=== PATIENT | male | born 1950 | race Caucasian/White ===

== ENCOUNTER → 2017-01-08 | Outpatient (CLI) | payer MEDICARE ==
[2017-01-08 15:09] LABS: Basophils % (A) 1 %; CHCM 33.2; Eosinophils # (A) 0.1 k/uL (0-0.7); Eosinophils % (A) 2 %; HCT 47.8 % (39.0-53.0); HDW 2.26; HGB 15.8 gm/dL (13.0-17.5); Luc # (Auto) 0.13; Luc % (Auto) 3; Lymphocytes # (A) 1.4 k/uL (1.0-4.8); Lymphocytes % (A) 32 %; MCHC 33.1 g/dL (31.0-37.0); MCV 96.7 fL (80.0-100.0); Mean Platelet Volume 8.2; Monocytes # (A) 0.3 k/uL (0-1.0); Monocytes % (A) 7 %; Neutrophils # (A) 2.4 k/uL (1.3-7.7); Neutrophils % (A) 55 %; RBC 4.94 m/uL (4.30-5.90); RDW 13.2 % (11.5-15.5); WBC 4.4 k/uL (3.8-10.6); WBC (Perox) 4.46
[2017-01-08 15:16] LABS: ALT 38 U/L (21-72); AST 33 U/L (17-59); Alkaline Phosphatase 44 U/L (38-126); Anion Gap 10 mmol/L; Blood Urea Nitrogen 14 mg/dL (9-20); Calcium 9.7 mg/dL (8.4-10.2); Carbon Dioxide 30 mmol/L (22-30); Chloride 102 mmol/L (98-107); Glucose 93 mg/dL (74-99); Non-African American GFR(MDRD) >60 (>60 ml/min/1.73 sqM); Sodium 142 mmol/L (137-145); Total Bilirubin 0.9 mg/dL (0.2-1.3); Total Protein 7.8 g/dL (6.3-8.2)
--- NOTE | 2017-01-08 15:36 | XR ---
EXAMINATION TYPE: XR chest 2V DATE OF EXAM: 01/08/2017 3:12 PM COMPARISON: 04/01/2012 TECHNIQUE: PA and lateral views submitted. HISTORY: Left-sided chest pain FINDINGS: The lungs are clear and there is no pneumothorax, pleural effusion, or focal pneumonia. Hyperinflation suggests COPD. Postoperative changes noted. IMPRESSION: 1. No acute process.
--- NOTE | 2017-01-08 15:36 | US ---
EXAMINATION TYPE: US abdomen complete DATE OF EXAM: 01/08/2017 2:38 PM COMPARISON: NONE CLINICAL HISTORY: R10.84 ABD PAIN. Left chest pain EXAM MEASUREMENTS: Liver Length: 12.2 cm Gallbladder Wall: 0.3 cm CBD: 0.1 cm Spleen: 7.1 cm Right Kidney: 11.0 x 5.0 x 4.9 cm Left Kidney: 12.0 x 5.6 x 5.0 cm cm Pancreas: overlying bowel gas limited visualization Liver: Echotexture somewhat heterogeneous within the liver. Gallbladder: wnl Evidence for sonographic Jackman's sign: No CBD: wnl Spleen: wnl Right Kidney: wnl Left Kidney: wnl Upper IVC: wnl overlying bowel gas limited visualization and Abd Aorta: wnloverlying bowel gas limited visualization Heterogeneously of liver echotexture could be due to underlying fatty infiltration with areas of foca l fatty sparing IMPRESSION: Findings in the liver as described, consider liver MRI for better evaluation. Exam is mejia ited.
== END ==
LOC: RADUSWWP 13:46
PROVIDERS: ATTEND Nurse Practitioner Family
DX: R10.84 Generalized abdominal pain (principal); R07.89 Other chest pain; R10.9 Unspecified abdominal pain; R53.83 Other fatigue; Z13.21 Encounter for screening for nutritional disorder
CPT/HCPCS: 71020; 76700; 80053; 82306; 85025

== ENCOUNTER → 2017-02-02 | Outpatient (CLI) | payer MEDICARE ==
--- NOTE | 2017-02-02 17:16 | MR ---
EXAMINATION TYPE: MR liver wo/w con DATE OF EXAM: 02/02/2017 1:51 PM COMPARISON: NONE HISTORY: Chest pain/LUQ pain, abn US CONTRAST: Standard multiplanar, multisequence MRI departmental protocol utilizing 16 mL intravenous MultiHance gadolinium contrast. FINDINGS: Liver has normal size and contour. I see no focal liver defect. Bile ducts are not dilated. Gallbladder appears normal. I see no gallbladder wall thickening. There is no sign of a pancreatic m ass. Spleen has normal size. There is a 1 cm area of fluid in the posterior aspect of the tail of the pancreas that could be a pseudocyst. Pancreatic duct appears normal. There is no sign of an adrenal mass. Kidneys have normal size and contour. There is no hydronephrosis. There is no sign of retroperi toneal adenopathy. There is no ascites. Bowel is unremarkable. There is no pathologic enhancement. Th ere is no evidence of a liver mass. There is normal renal contrast opacification. Ureters are not dil ated. I see no bony destructive process. IMPRESSION: Negative MR scan of the abdomen. Normal liver. Possible small pancreatic pseudocyst.
== END | disposition home or self-care (01) ==
LOC: RADMRIMAIN 12:47
PROVIDERS: ATTEND Nurse Practitioner Family
DX: R93.2 Abnormal findings on diagnostic imaging of liver and biliary tract (principal); R10.9 Unspecified abdominal pain
CPT/HCPCS: 74183; A9577

== ENCOUNTER → 2017-07-25 | Day surgery (SDC) | payer MEDICARE ==
[2017-07-24 11:28] VITALS: BMI 25.8
[~2017-07-25] MED LIST: LACTATED RINGERS 1,000 ML IV SCH; SODIUM CHLORIDE 0.9% 1,000 ML IV SCH
[2017-07-25 06:26] VITALS: BP 130/59; PULSE 42; RESP 18; TEMP 97.8
--- NOTE | 2017-07-25 07:58 | PN ---
PROGRESS NOTE Mr. Roberts is a 67-year-old male who was brought in to undergo NANETTE guided cardioversion. On presentation, he was noted to be in sinus bradycardia. He denies any chest pain. His breathing has been stable. In view of that, he will stop his beta rubens and he will be started on flecainide 50 mg twice a day. He will be discharged home today and followed in 2 weeks. The patient has an event monitor that was placed in [facility]. The recommendation and the plan was discussed with the patient and his family. TAWNYA / SALUDN: [id number] /
== END | disposition home or self-care (01) ==
LOC: CATHCVL 05:57
PROVIDERS: ATTEND Internal Medicine Interventional Cardiology
DX: R00.1 Bradycardia, unspecified (principal); Z53.8 Procedure and treatment not carried out for other reasons; I48.3 Typical atrial flutter; R07.9 Chest pain, unspecified; I48.91 Unspecified atrial fibrillation; E78.5 Hyperlipidemia, unspecified; Z79.01 Long term (current) use of anticoagulants; Z79.899 Other long term (current) drug therapy; Z98.890 Other specified postprocedural states
CPT/HCPCS: 93005

== ENCOUNTER → 2018-10-31 | Outpatient (CLI) | payer MEDICARE ==
[2018-10-31 10:24] LABS: Basophils % (A) 1 %; Eosinophils # (A) 0.1 k/uL (0-0.7); Eosinophils % (A) 2 %; HCT 46.9 % (39.0-53.0); HGB 15.4 gm/dL (13.0-17.5); Lymphocytes # (A) 1.3 k/uL (1.0-4.8); Lymphocytes % (A) 28 %; MCH 31.1 pg (25.0-35.0); MCHC 32.8 g/dL (31.0-37.0); Mean Platelet Volume 7.7; Monocytes # (A) 0.3 k/uL (0-1.0); Monocytes % (A) 7 %; Neutrophils # (A) 2.8 k/uL (1.3-7.7); Neutrophils % (A) 60 %; Platelet Count 185 k/uL (150-450); RBC 4.94 m/uL (4.30-5.90); RDW 13.2 % (11.5-15.5); WBC 4.7 k/uL (3.8-10.6)
[2018-10-31 10:30] LABS: INR 1.3 (<1.2); Prothrombin Time 13.5 sec (9.0-12.0)
[2018-10-31 16:34] LABS: Albumin 4.3 g/dL (3.80-4.90); Albumin/Globulin Ratio 1.72 (1.20-2.10); Anion Gap 6.8 mmol/L (4.00-12.00); Calcium 9.4 mg/dL (8.7-10.3); Carbon Dioxide 28.2 mmol/L (21.6-31.8); Globulin 2.5 g/dL (1.6-3.3); LDL Cholesterol,Calculated 116.8 mg/dL (0.0-131.0); Potassium 4.4 mmol/L (3.5-5.5); Total Bilirubin 0.8 mg/dL (0.3-1.2); Total Protein 6.8 g/dL (6.2-8.2); VLDL Calculation 14.2 mg/dL (5.00-40.00)
== END ==
LOC: LABWHC1 09:44
PROVIDERS: ATTEND Nurse Practitioner Family
DX: E78.2 Mixed hyperlipidemia (principal)
CPT/HCPCS: 36415; 80053; 80061; 84153; 84443; 85025; 85610

== ENCOUNTER → 2018-11-14 | Outpatient (CLI) | payer MEDICARE ==
[2018-11-14 11:33] LABS: INR 2.7 (<1.2); Prothrombin Time 25.7 sec (9.0-12.0)
== END | disposition home or self-care (01) ==
LOC: LABWHC1 10:27
PROVIDERS: ATTEND Nurse Practitioner Family
DX: I48.0 Paroxysmal atrial fibrillation (principal); Z79.01 Long term (current) use of anticoagulants
CPT/HCPCS: 36415; 85610

== ENCOUNTER → 2019-02-03 | Outpatient (CLI) | payer MEDICARE ==
[2019-02-03 16:29] LABS: LDL Cholesterol,Calculated 126.6 mg/dL (0.0-131.0); VLDL Calculation 10.4 mg/dL (5.00-40.00)
== END | disposition home or self-care (01) ==
LOC: LABWHC1 09:58
PROVIDERS: ATTEND Nurse Practitioner Family
DX: I48.0 Paroxysmal atrial fibrillation (principal); E78.2 Mixed hyperlipidemia; Z79.01 Long term (current) use of anticoagulants
CPT/HCPCS: 36415; 80061

== ENCOUNTER → 2019-10-21 | Outpatient (CLI) | payer MEDICARE ==
[2019-10-21 15:19] LABS: INR 2.1 (<1.2); Prothrombin Time 20.9 sec (9.0-12.0)
== END ==
LOC: LABWHC1 14:50
PROVIDERS: ATTEND Family Medicine
DX: Z51.81 Encounter for therapeutic drug level monitoring (principal); Z79.01 Long term (current) use of anticoagulants
CPT/HCPCS: 36415; 85610

== ENCOUNTER → 2020-03-31 | Outpatient (CLI) | payer MEDICARE ==
[2020-03-31 12:15] LABS: INR 2.5 (<1.2)
== END | disposition home or self-care (01) ==
LOC: LABWHC1 10:51
PROVIDERS: ATTEND Family Medicine
DX: I48.0 Paroxysmal atrial fibrillation (principal); Z79.01 Long term (current) use of anticoagulants
CPT/HCPCS: 36415; 85610

== ENCOUNTER → 2020-12-02 | Outpatient (CLI) | payer MEDICARE ==
--- NOTE | 2020-12-02 12:55 | CT ---
EXAMINATION TYPE: CT brain w con DATE OF EXAM: 12/02/2020 COMPARISON: None. HISTORY: Right hand tremors. CT DLP: 1234.5 mGycm Automated exposure control for dose reduction was used. CONTRAST: CT scan of the head is performed with IV Contrast, patient injected with 100 mL of Isovue M300. FINDINGS: There is no abnormal enhancing mass or midline shift identified. The ventricles and sulci are within normal limits in size for patient's age. Lauren-white matter differentiation fairly well maintained. The globes are intact and the visualized sinuses are clear. IMPRESSION: Unremarkable study.
== END | disposition home or self-care (01) ==
LOC: RADCTMAIN 11:53
PROVIDERS: ATTEND Family Medicine
DX: R25.1 Tremor, unspecified (principal); E78.2 Mixed hyperlipidemia
CPT/HCPCS: 70460; Q9967

== ENCOUNTER → 2020-12-21 | Outpatient (CLI) | payer MEDICARE ==
--- NOTE | 2020-12-21 11:28 | XR ---
EXAMINATION TYPE: XR chest 2V DATE OF EXAM: 12/21/2020 COMPARISON: 01/08/2017 TECHNIQUE: PA and lateral views submitted. HISTORY: MRI clearance FINDINGS: The lungs are clear and there is no pneumothorax, pleural effusion, or focal pneumonia. Sternotomy wires and clips are noted. No diagnostic evidence of epicardial lead. Hypertrophic change of the spin e. Mild hyperinflation. Atherosclerotic change of the aorta. IMPRESSION: 1. No evidence of epicardial lead.
== END | disposition home or self-care (01) ==
LOC: RADXRMAIN 11:12
PROVIDERS: ATTEND Orthopaedic Surgery
DX: Z18.10 Retained metal fragments, unspecified (principal); I70.0 Atherosclerosis of aorta
CPT/HCPCS: 71046

== ENCOUNTER → 2021-02-02 | Outpatient (CLI) | payer MEDICARE ==
[2021-02-02 19:14] LABS: INR 0.96 (0.90-1.11); Prothrombin Time 10.5 sec (9.9-11.9)
== END | disposition home or self-care (01) ==
LOC: LABWHC1 10:22
PROVIDERS: ATTEND Nurse Practitioner Family
DX: Z01.812 Encounter for preprocedural laboratory examination (principal)
CPT/HCPCS: 36415; 85610

== ENCOUNTER → 2021-05-30 | Outpatient (CLI) | payer MEDICARE ==
[2021-05-30 19:27] LABS: INR 2.19 (0.90-1.11); Prothrombin Time 22.7 sec (9.9-11.9)
== END | disposition home or self-care (01) ==
LOC: LABWHC1 11:06
PROVIDERS: ATTEND Family Medicine
DX: Z79.01 Long term (current) use of anticoagulants (principal)
CPT/HCPCS: 36415; 85610